=== PATIENT | male | born 1935 | race Caucasian/White ===

== ENCOUNTER 2022-04-02 18:39 | Emergency (ER) | payer OTHER ==
[2022-04-02] MEDS ORDERED: Diphtheria,Pertussis(Acell),Tetanus Vaccine 0.5 ML Syringe IM ONE (19:50)
== END 2022-04-02 20:29 | disposition home or self-care (01) ==
LOC: JP.ED 18:39
DX: S51.811A Laceration without foreign body of right forearm, initial encounter (principal); Z23 Encounter for immunization; X58.XXXA Exposure to other specified factors, initial encounter
CPT/HCPCS: 12004; 90471; 90715; 99282-25

== ENCOUNTER 2023-02-15 14:04 | Emergency (ER) | payer OTHER | END 2023-02-15 16:32 | disposition other institution (70) | LOC: JP.ED 14:04 | DX: S05.02XA Injury of conjunctiva and corneal abrasion without foreign body, left eye, initial encounter (principal); I10 Essential (primary) hypertension; W86.1XXA Exposure to industrial wiring, appliances and electrical machinery, initial encounter | CPT/HCPCS: 99283 ==